=== PATIENT | male | born 1995 | race Caucasian/White ===

== ENCOUNTER 2018-06-07 07:13 | Emergency (ER) | payer SELFPAY ==
--- NOTE | 2018-06-07 07:17 | ER Report ---
History and Physical Time Seen By MD: 07:17 HPI/ROS CHIEF COMPLAINT: Abdominal pain nausea HISTORY OF PRESENT ILLNESS: Patient is a 23-year-old male with no medical history on no medications here with complaints of intermittent abdominal pain w hich has been progressive, coming in more frequent intervals, worsening especially the last month. Patient awoke from sleep at approximately 4 AM with left-sided abdominal pain, nausea. Denies prior evaluation for his abdominal pain. Patient denies taking any medication for symptom management. Denies history of abdominal surgeries, IBD. Patient is afebrile and denies fevers at home, hemodynamically stable at time of evaluation. REVIEW OF SYSTEMS: Constitutional: No fever, no chills. Eyes: No discharge. ENT: No sore throat. Cardiovascular: No chest pain, no palpitations. Respiratory: No cough, no shortness of breath. Gastrointestinal: + left sided abdominal pain, no vomiting, + nausea, + reports of dark stools intermittently Genitourinary: No hematuria. Musculoskeletal: No back pain. Skin: No rashes. Neurological: No headache. Allergies: Coded Allergies: No Known Drug Allergies (Unverified , 06/07/18) Home Meds Active Scripts Ondansetron (ZOFRAN ODT) 4 Mg Tab.rapdis, 4 MG PO Q6H PRN for NAUSEA/VOMITING, #20 TAB.AYO 0 Refills Prov:WALKER STEVEN DO 06/07/18 Omeprazole (OMEPRAZOLE) 20 Mg Capsule.dr, 1 CAP PO QDAY for 30 Days, #30 CAP Prov:WALKER STEVEN DO 06/07/18 Reported Medications Melatonin (MELATONIN) 1 Mg Tablet, 1 MG PO PRN 06/07/18 Constitutional Vital Sign - Last 24 Hours 06/07/18 06/07/18 06/07/18 06/07/18 07:21 07:22 07:30 07:45 Temp 98.5 Pulse 76 74 71 Resp 16 B/P (MAP) 120/62 (81) 120/62 107/57 (74) Pulse Ox 95 94 95 O2 Delivery Room Air 06/07/18 06/07/18 06/07/18 06/07/18 08:00 08:15 08:30 08:45 Pulse 75 74 66 72 B/P (MAP) 105/65 (78) 102/64 (77) Pulse Ox 78 95 95 93 06/07/18 06/07/18 06/07/18 09:00 09:15 09:30 Pulse 70 69 59 B/P (MAP) 103/65 (78) 101/69 (80) Pulse Ox 94 94 94 Physical Exam General Appearance: The patient is alert, has no immediate need for airway protection and no signs of toxicity. NAD Eyes: Pupils equal and round no pallor or injection. ENT, Mouth: Mucous membranes are moist. Respiratory: There are no retractions, lungs are clear to auscultation. Cardiovascular: Regular rate and rhythm. Gastrointestinal: Abdomen is soft and non tender, no masses, bowel sounds normal, No rebound or peritoneal signs. Neurological: No focal neuro deficits Skin: Warm and dry, no rashes. Musculoskeletal: Neck is supple non tender. Extremities are nontender, nonswollen and have full range of motion. DIFFERENTIAL DIAGNOSIS: After history and physical exam differential diagnosis was considered for abdominal pain including but not limited to appendicitis, cholecystitis, gastritis and urinary tract infection., IBD, diverticulitis Medical Decision Making Data Points Result Diagram: 06/07/18 0735 06/07/18 0735 Laboratory Hematology Test 06/07/18 07:35 06/07/18 08:35 Red Blood Count 6.01 M/uL (4.00-5.60) Mean Corpuscular Volume 87.7 fL (80.0-96.0) Mean Corpuscular Hemoglobin 30.4 pg (26.0-33.0) Mean Corpuscular Hemoglobin Concent 34.7 g/dL (32.0-36.0) Red Cell Distribution Width 12.4 % (11.5-14.5) Mean Platelet Volume 7.8 fL (7.2-11.1) Neutrophils (%) (Auto) 68.8 % (39.4-72.5) Lymphocytes (%) (Auto) 21.0 % (17.6-49.6) Monocytes (%) (Auto) 7.4 % (4.1-12.4) Eosinophils (%) (Auto) 1.7 % (0.4-6.7) Basophils (%) (Auto) 1.1 % (0.3-1.4) Nucleated RBC Relative Count (auto) 0.0 /100WBC Neutrophils # (Auto) 7.8 K/uL (2.0-7.4) Lymphocytes # (Auto) 2.4 K/uL (1.3-3.6) Monocytes # (Auto) 0.8 K/uL (0.3-1.0) Eosinophils # (Auto) 0.2 K/uL (0.0-0.5) Basophils # (Auto) 0.1 K/uL (0.0-0.1) Nucleated RBC Absolute Count (auto) 0.00 K/uL Erythrocyte Sedimentation Rate < 1 mm/HOUR (0-15) Sodium Level 139 mmol/L (137-145) Potassium Level 4.3 mmol/L (3.5-5.0) Chloride Level 103 mmol/L (98-107) Carbon Dioxide Level 27 mmol/L (22-30) Blood Urea Nitrogen 28 mg/dl (9-21) Creatinine 1.10 mg/dl (0.66-1.25) Glomerular Filtration Rate Calc > 60.0 Random Glucose 90 mg/dl (75-110) Calcium Level 9.0 mg/dl (8.4-10.2) Total Bilirubin 0.7 mg/dl (0.2-1.3) Aspartate Amino Transf (AST/SGOT) 35 U/L (0-35) Alanine Aminotransferase (ALT/SGPT) 32 U/L (0-56) Alkaline Phosphatase 108 U/L (0-126) C-Reactive Protein < 0.5 mg/dl (<1.0) Total Protein 7.2 g/dl (6.3-8.2) Albumin 4.0 g/dl (3.5-5.0) Lipase 65 U/L (23-300) Urine Color Yellow Urine Clarity Clear Urine pH 5.0 pH (4.8-9.5) Urine Specific [place] 1.010 Urine Protein Negative mg/dL (NEGATIVE) Urine Glucose (UA) Negative mg/dL (NEGATIVE) Urine Ketones Negative mg/dL (NEGATIVE) Urine Blood Negative (NEGATIVE) Urine Nitrite Negative (NEGATIVE) Urine Bilirubin Negative (NEGATIVE) Urine Urobilinogen Negative mg/dL (0.2-1.9) Urine Leukocyte Esterase Negative (NEGATIVE) Urine RBC None /HPF (0-2/HPF) Urine WBC 1 /HPF (0-5/HPF) Urine Squamous Epithelial Cells None /LPF (</=FEW) Urine Bacteria Negative /HPF (NONE-FEW) Urine Mucus Few /HPF (NONE-FEW) Chemistry Test 06/07/18 07:35 06/07/18 08:35 White Blood Count 11.3 k/uL (4.5-11.0) Red Blood Count 6.01 M/uL (4.00-5.60) Hemoglobin 18.3 g/dL (14.0-18.0) Hematocrit 52.7 % (42.0-52.0) Mean Corpuscular Volume 87.7 fL (80.0-96.0) Mean Corpuscular Hemoglobin 30.4 pg (26.0-33.0) Mean Corpuscular Hemoglobin Concent 34.7 g/dL (32.0-36.0) Red Cell Distribution Width 12.4 % (11.5-14.5) Platelet Count 272 K/uL (150-450) Mean Platelet Volume 7.8 fL (7.2-11.1) Neutrophils (%) (Auto) 68.8 % (39.4-72.5) Lymphocytes (%) (Auto) 21.0 % (17.6-49.6) Monocytes (%) (Auto) 7.4 % (4.1-12.4) Eosinophils (%) (Auto) 1.7 % (0.4-6.7) Basophils (%) (Auto) 1.1 % (0.3-1.4) Nucleated RBC Relative Count (auto) 0.0 /100WBC Neutrophils # (Auto) 7.8 K/uL (2.0-7.4) Lymphocytes # (Auto) 2.4 K/uL (1.3-3.6) Monocytes # (Auto) 0.8 K/uL (0.3-1.0) Eosinophils # (Auto) 0.2 K/uL (0.0-0.5) Basophils # (Auto) 0.1 K/uL (0.0-0.1) Nucleated RBC Absolute Count (auto) 0.00 K/uL Erythrocyte Sedimentation Rate < 1 mm/HOUR (0-15) Glomerular Filtration Rate Calc > 60.0 Calcium Level 9.0 mg/dl (8.4-10.2) Total Bilirubin 0.7 mg/dl (0.2-1.3) Aspartate Amino Transf (AST/SGOT) 35 U/L (0-35) Alanine Aminotransferase (ALT/SGPT) 32 U/L (0-56) Alkaline Phosphatase 108 U/L (0-126) C-Reactive Protein < 0.5 mg/dl (<1.0) Total Protein 7.2 g/dl (6.3-8.2) Albumin 4.0 g/dl (3.5-5.0) Lipase 65 U/L (23-300) Urine Color Yellow Urine Clarity Clear Urine pH 5.0 pH (4.8-9.5) Urine Specific [place] 1.010 Urine Protein Negative mg/dL (NEGATIVE) Urine Glucose (UA) Negative mg/dL (NEGATIVE) Urine Ketones Negative mg/dL (NEGATIVE) Urine Blood Negative (NEGATIVE) Urine Nitrite Negative (NEGATIVE) Urine Bilirubin Negative (NEGATIVE) Urine Urobilinogen Negative mg/dL (0.2-1.9) Urine Leukocyte Esterase Negative (NEGATIVE) Urine RBC None /HPF (0-2/HPF) Urine WBC 1 /HPF (0-5/HPF) Urine Squamous Epithelial Cells None /LPF (</=FEW) Urine Bacteria Negative /HPF (NONE-FEW) Urine Mucus Few /HPF (NONE-FEW) Urinalysis Test 06/07/18 08:35 Urine Color Yellow Urine Clarity Clear Urine pH 5.0 pH (4.8-9.5) Urine Specific [place] 1.010 Urine Protein Negative mg/dL (NEGATIVE) Urine Glucose (UA) Negative mg/dL (NEGATIVE) Urine Ketones Negative mg/dL (NEGATIVE) Urine Blood Negative (NEGATIVE) Urine Nitrite Negative (NEGATIVE) Urine Bilirubin Negative (NEGATIVE) Urine Urobilinogen Negative mg/dL (0.2-1.9) Urine Leukocyte Esterase Negative (NEGATIVE) Urine RBC None /HPF (0-2/HPF) Urine WBC 1 /HPF (0-5/HPF) Urine Squamous Epithelial Cells None /LPF (</=FEW) Urine Bacteria Negative /HPF (NONE-FEW) Urine Mucus Few /HPF (NONE-FEW) EKG/Imaging Imaging ABDOMEN/PELVIS WITH CONTRAST COMPARISON: None. HISTORY: diffuse abd pain, progressive. Patient reports left upper quadrant pain to the technologist. TECHNIQUE: Axial CT abdomen and pelvis with intravenous contrast. Coronal and sagittal reformats. One of the following dose optimization techniques was utilized in the performance of this exam: automated exposure control; adjustment of the mA and/or kV according to patient size; or use of iterative reconstruction technique. Specific details can be referenced in the facility's radiology CT exam operational policy. CONTRAST: 75 mL of IV Isovue-370. FINDINGS: LUNG BASES: There is a 2 mm right lower lobe nodule on series 2 image 16, likely benign incidental finding the patient this age which typically does not require follow-up. LIVER: Small region of perfusional variation adjacent to the patella. Otherwise negative. BILIARY: Unremarkable gallbladder. No intra-or extrahepatic bile duct dilatation. SPLEEN: Unremarkable. Normal size. PANCREAS: Unremarkable. No significant mass, ductal dilatation or focal atrophy. No evidence of acute pancreatitis. ADRENALS: Unremarkable. KIDNEYS: Unremarkable. No hydronephrosis, evidence of pyelonephritis, or appreciable stones. GI/MESENTERY: Unremarkable. No visible mass, obstruction, or bowel wall thickening. There is no localized fracture stranding or free air/free fluid. VASCULAR: Unremarkable. LYMPH NODES: Unremarkable. No significantly enlarged lymph nodes. BLADDER: Unremarkable. No visible focal wall thickening, appreciable lesion, or calculus. PELVIC ORGANS: Unremarkable. Pelvic organs are within normal limits for age. BONES: Multilevel Schmorl's nodes, lower thoracic spine mid and upper lumbar spine.No acute-appearing fracture or suspicious osseous lesion. OTHER: Negative. IMPRESSION: 1. No cause for pain identified. 2. A 2 mm right lower lobe nodule is probably a benign incidental finding in a patient of this age and no further follow-up is suggested. ED Course/Re-evaluation ED Course Patient is a 23-year-old male here with complaints of left-sided abdominal pain which has been intermittent for the past several months, progressive, worsening. Patient came in for evaluation today due to left sided abdominal pain which woke him from sleep at approximately 4:00 this morning. He reports that over the past month his pain has been more frequent, worsening. He also reports having dark stools intermittently, nausea without vomiting. Denies prior history of abdominal pathology, other medical problems, taking medications aside from melatonin for sleep. Patient is alert, oriented, hemodynamically stable and reports that his pain was improving without intervention this morning. CT imaging of the abdomen and pelvis was completed to evaluate for infectious etiology. CT imaging showed no acute findings. Labs are unremarkable, inflammatory markers were negative. I updated the patient regarding his lab findings and imaging results. Patient was provided scripts for omeprazole and Zofran and the patient was advised to avoid spicy foods, red sauces, red wine, chocolates and acidic foods to avoid exacerbation symptoms. Patient voiced unde rstanding of plan. Decision to Disposition Date: Jun 07, 2018 Decision to Disposition Time: 09:15 Depart Departure Latest Vital Signs Vital Signs Date Time Temp Pulse Resp B/P (MAP) Pulse Ox O2 Delivery O2 Flow Rate FiO2 06/07/18 09:30 59 101/69 (80) 94 06/07/18 07:22 98.5 16 Room Air Impression: Primary Impression: Abdominal pain Condition: Improved Disposition: HOME OR SELF-CARE New Scripts Ondansetron (ZOFRAN ODT) 4 Mg Tab.rapdis 4 MG PO Q6H PRN for NAUSEA/VOMITING, #20 TAB.AYO 0 Refills Prov: WALKER STEVEN DO 06/07/18 Omeprazole (OMEPRAZOLE) 20 Mg Capsule.dr 1 CAP PO QDAY for 30 Days, #30 CAP Prov: WALKER STEVEN DO 06/07/18 Patient Instructions: Abdominal Pain (ED) Additional Instructions: Please drink plenty of water. You may take 1 Zofran every 4-6 hours as needed for control of nausea and vomiting. Please take 1 tablet of omeprazole 30 minutes before breakfast for the next 2 weeks as a trial to see if your abdominal pain improves. Please follow up closely with her family doctor within the next week. Please return to the emergency department if she develop fevers, chills, worsening abdominal pain, inability to hold down fluids or food, blood in your stools or urine. WALKER STEVEN DO Jun 07, 2018 07:17
[2018-06-07] MEDS ORDERED: NS(*) 0.9% 1000 ML BAG 1,000 ML IV ONE (07:20)
[2018-06-07] MEDS ORDERED: MELA1TAB23 PO (07:29)
[2018-06-07 07:49] LABS: PLATELET COUNT, AUTOMATED 272 K/uL (150-450)
[2018-06-07] MEDS ORDERED: IOPAMIDOL 76% 75 ML INFUS BTL 75 ML ONE (07:49)
--- NOTE | 2018-06-07 08:21 | RADIOLOGY IMAGING REPORT ---
FACILITY: [facility] PATIENT NAME: Gato Flowers : 1995 MR: [id number] V: [id number] EXAM DATE: ORDERING PHYSICIAN: WALKER STEVEN TECHNOLOGIST: Location: [facility] [place] Patient: Gato Flowers : 1995 Visit/Account:[id number] Date of Sevice: 06/07/2018 ABDOMEN/PELVIS WITH CONTRAST COMPARISON: None. HISTORY: diffuse abd pain, progressive. Patient reports left upper quadrant pain to the technologis t. TECHNIQUE: Axial CT abdomen and pelvis with intravenous contrast. Coronal and sagittal reformats. One of the following dose optimization techniques was utilized in the performance of this exam: aut omated exposure control; adjustment of the mA and/or kV according to patient size; or use of iterativ e reconstruction technique. Specific details can be referenced in the facility's radiology CT exam o perational policy. CONTRAST: 75 mL of IV Isovue-370. FINDINGS: LUNG BASES: There is a 2 mm right lower lobe nodule on series 2 image 16, likely benign incidental f inding the patient this age which typically does not require follow-up. LIVER: Small region of perfusional variation adjacent to the patella. Otherwise negative. BILIARY: Unremarkable gallbladder. No intra-or extrahepatic bile duct dilatat ion. SPLEEN: Unremarkable. Normal size. PANCREAS: Unremarkable. No significant mass, ductal dilatation or focal atrophy. No evidence of ac [facility] pancreatitis. ADRENALS: Unremarkable. KIDNEYS: Unremarkable. No hydronephrosis, evidence of pyelonephritis, or appreciable stones. GI/MESENTERY: Unremarkable. No visible mass, obstruction, or bowel wall thickening. There is no l ocalized fracture stranding or free air/free fluid. VASCULAR: Unremarkable. LYMPH NODES: Unremarkable. No significantly enlarged lymph nodes. BLADDER: Unremarkable. No visible focal wall thickening, appreciable lesion, or calculus. PELVIC ORGANS: Unremarkable. Pelvic organs are within normal limits for age. BONES: Multilevel Schmorl's nodes, lower thoracic spine mid and upper lumbar spine.No acute-appearin g fracture or suspicious osseous lesion. OTHER: Negative. IMPRESSION: 1. No cause for pain identified. 2. A 2 mm right lower lobe nodule is probably a benign incidental finding in a patient of this age a nd no further follow-up is suggested. Report Dictated By: Harish Hooks at 06/07/2018 8:11 AM Report E-Signed By: Harish Hooks at 06/07/2018 8:16 AM [id number]
[2018-06-07] MEDS ORDERED: OMEP-125 PO (08:25)
[2018-06-07] MEDS ORDERED: ONDA4TAB PO (08:25)
[2018-06-07 09:30] VITALS: BP 101/69
== END 2018-06-07 09:35 | disposition home or self-care (01) ==
LOC: ER 07:39
DX: R10.9 Unspecified abdominal pain (principal)
CPT/HCPCS: 74177; 81001; 83690; 85025; 85651; 86140; 96360; 99284; J7030; Q9967; 82040; 82247; 82310; 82374; 82435; 82565; 82947; 84075; 84132; 84155; 84295; 84450; 84460; 84520